=== PATIENT | female | born 1985 | race Caucasian/White ===

== ENCOUNTER 2017-09-22 03:50 | Emergency (ER) | payer OTHER ==
[2017-09-22 04:05] VITALS: TEMP 98.2
--- NOTE | 2017-09-22 04:38 | CT ---
EXAM: CT Head Without Intravenous Contrast CLINICAL HISTORY: Reason: Pain TECHNIQUE: Axial computed tomography images of the head/brain without intravenous contrast. CTDI is 57.4 mGy and DLP is 961.0 mGy-cm. This CT exam was performed using one or more of the following dose reduction techniques: automated exposure control, adjustment of the mA and/or kV according to patient size, and/or use of iterative reconstruction technique. COMPARISON: CT head dated 10/22/2015. FINDINGS: Brain: Small presumed perivascular space in inferior left basal ganglia appears unchanged. Ventricles: Unremarkable. No ventriculomegaly. Bones/joints: No acute fracture. Soft tissues: Mild soft tissue swelling within the frontal scalp. Sinuses: Unremarkable as visualized. Mastoid air cells: Unremarkable as visualized. IMPRESSION: No acute intracranial hemorrhage or skull fracture. EXAM: CT Head Without Intravenous Contrast CT Cervical Spine Without Intravenous Contrast CLINICAL HISTORY: Reason: Pain TECHNIQUE: Axial computed tomography images of the cervical spine without intravenous contrast. CTDI is 14.1 mGy and DLP is 269.9 mGy-cm. This CT exam was performed using one or more of the following dose reduction techniques: automated exposure control, adjustment of the mA and/or kV according to patient size, and/or use of iterative reconstruction technique. COMPARISON: None. FINDINGS: Vertebrae: Unremarkable. No acute fracture. Normal alignment. Discs/spinal canal/neural foramina: No acute findings. No significant bony spinal canal stenosis. Soft tissues: Unremarkable. Lung apices: Paraseptal emphysema. IMPRESSION: No acute findings.
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
[2017-09-22 09:07] VITALS: RESP 16
[2017-09-22 12:21] VITALS: BP 151/70; PULSE 121
== END 2017-09-22 12:22 | disposition home or self-care (01) ==
LOC: EC 03:50
DX: S02.2XXA Fracture of nasal bones, initial encounter for closed fracture (principal); S00.83XA Contusion of other part of head, initial encounter; F10.120 Alcohol abuse with intoxication, uncomplicated; F17.200 Nicotine dependence, unspecified, uncomplicated; Y04.2XXA Assault by strike against or bumped into by another person, initial encounter; Y92.009 Unspecified place in unspecified non-institutional (private) residence as the place of occurrence of the external cause
CPT/HCPCS: 70450; 72125; 82075; 99284

== ENCOUNTER 2022-01-28 13:02 | Emergency (ER) | payer OTHER ==
[2022-01-28 13:18] VITALS: BP 154/92; PULSE 86; RESP 20; TEMP 99.4
[2022-01-28] MEDS ORDERED: HYDROcodone/APAP 5-325MG 1 EACH TAB PO STA (13:33)
--- NOTE | 2022-01-28 13:53 | ED ---
Lower Extremity Injury HPI - General Chief Complaint: Extremity Injury, Upper Stated Complaint: lt ankle injury Time Seen by Provider: 01/28/22 13:12 Source: patient, RN notes reviewed Mode of arrival: ambulatory Limitations: no limitations - History of Present Illness Initial Comments: This is a 36-year-old female who presents to the emergency department for an injury to the left foot and ankle. Patient states that she tripped over a bunch of cords on her bedroom floor yesterday and fell. She is unsure how her foot and ankle were positioned when she fell, however since then she has been unable to bear any weight on the left foot. She has been applying ice but has otherwise not taken any medication for pain relief. Denies any fevers, chills, sore throat, cough, dyspnea, chest pain, palpitations, abdominal pain, nausea, vomiting, diarrhea, back pain, or headaches. MD Complaint: ankle injury, foot injury Onset/Timin -: days(s) Injury: Ankle: Left, Foot: Left Place: home Worsens With: weight bearing, movement, palpation Treatments Prior to Arrival: bandage - Related Data Previous Rx's Medication Instructions Recorded HYDROcodone/APAP 5-325MG [[place] 1 tab PO Q6HR PRN 3 Days #12 tab 01/28/22 5-325] Allergies Allergy/AdvReac Type Severity Reaction Status Date / Time No Known Allergies Allergy Verified 01/28/22 13:17 Review of Systems ROS Statement: Those systems with pertinent positive or pertinent negative responses have been documented in the HPI. ROS Other: All systems not noted in ROS Statement are negative. Past Medical History Past Medical History: No Reported History History of Any Multi-Drug Resistant Organisms: None Reported Additional Past Surgical History / Comment(s): facial surgery Past Psychological History: No Psychological Hx Reported Smoking Status: Current every day smoker Past Alcohol Use History: Rare Past Drug Use History: Marijuana General Exam Limitations: no limitations General appearance: alert, in distress Head exam: Present: atraumatic, normocephalic, normal inspection Respiratory exam: Present: normal lung sounds bilaterally. Absent: respiratory distress, wheezes, rales, rhonchi, stridor Cardiovascular Exam: Present: regular rate, normal rhythm, normal heart sounds. Absent: systolic murmur, diastolic murmur, rubs, gallop, clicks Extremities exam: Present: other (Erythema, swelling, ecchymosis to the left foot and ankle. Significant tenderness to palpation. 2+ dorsalis pedis and tibialis posterior pulses bilaterally. Capillary refill less than 1 second.) Neurological exam: Present: alert, oriented X3, CN II-XII intact Psychiatric exam: Present: normal affect, normal mood Skin exam: Present: warm, dry, intact, normal color. Absent: rash Course Vital Signs 01/28/22 13:14 Temperature 99.4 F Pulse Rate 86 Respiratory 20 Rate Blood Pressure 154/92 O2 Sat by Pulse 99 Oximetry Procedures - Orthopedic Splinting/Casting Injury #1 Side: left Lower Extremity Injury Location: ankle Lower Extremity Immobilizer: stirrup splint Other Orthopedic Equipment: crutches Medical Decision Making - Medical Decision Making This is a 36-year-old female who presents to the emergency department for a left ankle injury. X-ray reveals an acute nondisplaced oblique intra-articular fracture through the medial malleolus. Patient was placed in a stirrup splint and given crutches. Prescription for [place] sent to the pharmacy. She is advised to take this with ibuprofen and Tylenol. Also instructed her to take the [place] at night until she knows how it affects her, as it may be sedating. She is advised to ice the ankle for the first 2 days followed by heat there afterwards. Information for orthopedic follow-up listed on her discharge form. She is advised to contact them for an appointment. Return precautions reviewed in depth, the patient is instructed to return to the emergency department with any new, worsening, or concerning symptoms. Patient verbalized understanding. This case was discussed in detail with the attending ED physician. Presentation, findings, and treatment plan discussed in detail as well. - Radiology Data Radiology results: report reviewed, image reviewed Disposition Clinical Impression: Fracture of medial malleolus, left, closed Disposition: HOME SELF-CARE Instructions (If sedation given, give patient instructions): Ankle Fracture (ED), Crutch Instructions (ED), Splint Care (ED) Additional Instructions: Return to the emergency department with any new, worsening, or concerning symptoms. Take the [place] sparingly when the pain is the most severe. Otherwise alternate with Tylenol and ibuprofen for pain. Contact Dr. Brown, orthopedics, as listed below for follow-up. Elevate the leg and apply ice for the first 2 days followed by heat there afterwards. Prescriptions: HYDROcodone/APAP 5-325MG [[place] 5-325] 1 tab PO Q6HR PRN 3 Days #12 tab PRN Reason: Pain Is patient prescribed a controlled substance at d/c from ED?: No Referrals: Jared Yoon MD [Primary Care Provider] - 1-2 days Vicente Brown DO [Doctor of Osteopathic Medicine] - 1-2 days
--- NOTE | 2022-01-28 14:25 | XR ---
EXAMINATION TYPE: XR foot complete LT DATE OF EXAM: 01/28/2022 COMPARISON: NONE INDICATION: Pain after fall TECHNIQUE: 3 views of the left foot FINDINGS: Minimal cortical irregularity along the medial distal aspect of the second proximal phalanx, please c orrelate clinically. Subtle linear lucency superimposed on the base of the fourth metatarsal bone, please correlate clinic ally. No definite acute fracture line identified otherwise. No other significant bony or articular abnormal ity is seen. IMPRESSION: As above.
--- NOTE | 2022-01-28 14:28 | XR ---
EXAMINATION TYPE: XR tibia fibula LT DATE OF EXAM: 01/28/2022 CLINICAL HISTORY: Pain after fall injury. TECHNIQUE: Two views of the left leg are obtained. COMPARISON: Same day left foot x-ray.. FINDINGS: There is acute nondisplaced oblique intra-articular fracture through the medial malleolus. Lateral malleolus is intact. Ankle mortise symmetry fairly well preserved. No additional fracture in the proximal to mid left leg. A few anterior phleboliths are present. IMPRESSION: There is acute nondisplaced oblique intra-articular fracture through the medial malleolu s.
== END 2022-01-28 15:39 | disposition home or self-care (01) ==
LOC: EC 13:02
DX: S82.52XA Displaced fracture of medial malleolus of left tibia, initial encounter for closed fracture (principal); F17.200 Nicotine dependence, unspecified, uncomplicated; W01.0XXA Fall on same level from slipping, tripping and stumbling without subsequent striking against object, initial encounter

== ENCOUNTER 2024-10-14 16:13 | Emergency (ER) | payer OTHER ==
[2024-10-14] MEDS: dexAMETHasone 2 MG TAB PO STA (17:08)
[2024-10-14] MEDS: IBUPROFEN 600 MG TAB PO STA (17:08)
[2024-10-14 17:57] LABS: Influenza A Not Detected (Not Detectd); Influenza B Not Detected (Not Detectd); RSV Not Detected (Not Detectd)
--- NOTE | 2024-10-14 18:07 | ED ---
ENT HPI - General Chief complaint: ENT Stated complaint: Swollen Throat Time Seen by Provider: 10/14/24 18:06 Source: patient, RN notes reviewed Mode of arrival: ambulatory Limitations: no limitations - History of Present Illness Initial comments: 39-year-old female presented to the ER for evaluation of swollen throat. Patient states around 9 AM this morning she woke up and noticed her throat felt swollen. Patient states it is mildly painful for her to swallow but denies any difficulty breathing or difficulty handling her own secretions. She denies any fevers, chills or tongue swelling. She does report recent household members have been ill with URI symptoms. No other complaints at this time. No new medications. - Related Data Previous Rx's Medication Instructions Recorded HYDROcodone/APAP 5-325MG [[place] 1 tab PO Q6HR PRN 3 Days #12 tab 01/28/22 5-325] Allergies Allergy/AdvReac Type Severity Reaction Status Date / Time No Known Allergies Allergy Verified 10/14/24 16:32 Review of Systems ROS Statement: Those systems with pertinent positive or pertinent negative responses have been documented in the HPI. ROS Other: All systems not noted in ROS Statement are negative. Past Medical History Past Medical History: No Reported History History of Any Multi-Drug Resistant Organisms: None Reported Past Surgical History: Section Additional Past Surgical History / Comment(s): facial surgery Past Psychological History: No Psychological Hx Reported Smoking Status: Current every day smoker Past Alcohol Use History: Rare Past Drug Use History: Marijuana General Exam Limitations: no limitations General appearance: alert, in no apparent distress ENT exam: Present: mucous membranes moist (Edematous uvula. No erythema. Uvula appears to be pale no exudate), TM's normal bilaterally Neck exam: Present: normal inspection. Absent: tenderness, meningismus, lymphadenopathy Respiratory exam: Present: normal lung sounds bilaterally. Absent: respiratory distress, wheezes, rales, rhonchi, stridor Cardiovascular Exam: Present: regular rate, normal rhythm, normal heart sounds. Absent: systolic murmur, diastolic murmur, rubs, gallop, clicks Neurological exam: Present: alert, oriented X3, CN II-XII intact Skin exam: Present: warm, dry, intact, normal color. Absent: rash Course Vital Signs 10/14/24 10/14/24 16:29 18:38 Temperature 97.9 F 98.8 F Pulse Rate 84 73 Respiratory 18 19 Rate Blood Pressure 139/82 145/81 O2 Sat by Pulse 96 98 Oximetry Medical Decision Making - Medical Decision Making Was pt. sent in by a medical professional or institution (TITA Dixon, CLEAN ROOM TECHNICIAN, urgent care, hospital, or [facility]...) When possible be specific @ -No Did you speak to anyone other than the patient for history (EMS, parent, family, police, friend...)? What history was obtained from this source @ -No Did you review nursing and triage notes (agree or disagree)? Why? @ -I reviewed and agree with nursing and triage notes Were old charts reviewed (outside hosp., previous admission, EMS record, old EKG, old radiological studies, urgent care reports/EKG's, [facility] records)? Report findings @ -No old charts were reviewed Differential Diagnosis (chest pain, altered mental status, abdominal pain women, abdominal pain men, vaginal bleeding, weakness, fever, dyspnea, syncope, headache, dizziness, GI bleed, back pain, seizure, CVA, palpatations, mental health, musculoskeletal)? @ -COVID, RSV, influenza, viral sinusitis, pneumonia, strep pharyngitis, this list is not meant to be all-inclusive EKG interpreted by me (3pts min.). @ -None done X-rays interpreted by me (1pt min.). @ -None done CT interpreted by me (1pt min.). @ -None done U/S interpreted by me (1pt. min.). @ -None done What testing was considered but not performed or refused? (CT, X-rays, U/S, labs)? Why? @ -None What meds were considered but not given or refused? Why? @ -None Did you discuss the management of the patient with other professionals (professionals i.e. TITA Dixon, CLEAN ROOM TECHNICIAN, lab, RT, psych nurse, social secretary, farm machine tender, teacher, mail officer, case consultant)? Give summary @ -No Was smoking cessation discussed for >3mins.? @ -No Was critical care preformed (if so, how long)? @ -No Were there social determinants of health that impacted care today? How? (Homelessness, low income, unemployed, alcoholism, drug addiction, transportation, low edu. Level, literacy, decrease access to med. care, half-way, rehab)? @ -No Was there de-escalation of care discussed even if they declined (Discuss DNR or withdrawal of care, Hospice)? DNR status @ -No What co-morbidities impacted this encounter? (DM, HTN, Smoking, COPD, CAD, Cancer, CVA, ARF, Chemo, Hep., AIDS, mental health diagnosis, sleep apnea, morbid obesity)? @ -None Was patient admitted / discharged? Hospital course, mention meds given and route, prescriptions, significant lab abnormalities, going to OR and other pertinent info. @ -[Discharge. 39-year-old female presented to the ER for evaluation of sore throat. Exam showing an edematous uvula with a pale white appearance. There are no exudates oropharynx patent. There is no tongue or throat swelling. Patient in no signs of acute distress nontoxic-appearing. Viral swabs and strep negative. Patient given Decadron and ibuprofen. Patient stable for discharge at this time with close outpatient follow-up to PCP. I advised ice water and ibuprofen for symptom control. Strict return parameters discussed. Patient discharged in stable condition. Patient will expressed understanding agree with care plan. Case discussed with ED attending, . Undiagnosed new problem with uncertain prognosis? @ -No Drug Therapy requiring intensive monitoring for toxicity (Heparin, Nitro, Insulin, Cardizem)? @ -No Were any procedures done? @ -No Diagnosis/symptom? @ -Uvulitis Acute, or Chronic, or Acute on Chronic? @ -Acute Uncomplicated (without systemic symptoms) or Complicated (systemic symptoms)? @ -Uncomplicated Side effects of treatment? @ -No Exacerbation, Progression, or Severe Exacerbation? @ -No Poses a threat to life or bodily function? How? (Chest pain, USA, OR, pneumonia, PE, COPD, DKA, ARF, appy, cholecystitis, CVA, Diverticulitis, Homicidal, Suicidal, threat to staff... and all critical care pts) @ -No - Lab Data Lab Results 10/14/24 10/14/24 Range/Units 17:10 17:10 Influenza Type A (PCR) Not Detected (Not Detectd) Influenza Type B (PCR) Not Detected (Not Detectd) RSV (PCR) Not Detected (Not Detectd) SARS-CoV-2 (PCR) Not Detected (Not Detectd) Group A Strep (PCR) NOT DETECTED (Not Detectd) Disposition Clinical Impression: Uvulitis Disposition: HOME SELF-CARE Condition: Stable Additional Instructions: Continue drinking lots of ice water. I also recommend ibuprofen for inflammation and pain control. Be sure to eat when taking ibuprofen as this may irritate your stomach. Follow-up with PCP. Return to the ER for any new or worsening concerns. Is patient prescribed a controlled substance at d/c from ED?: No Referrals: None,Stated [Primary Care Provider] - 1-2 days Forms: Area PCPs Time of Disposition: 18:07
[2024-10-14 18:39] VITALS: BP 145/81; PULSE 73; RESP 19; TEMP 98.8
== END 2024-10-14 18:39 | disposition home or self-care (01) ==
LOC: EC 16:13
DX: K12.2 Cellulitis and abscess of mouth (principal); F17.200 Nicotine dependence, unspecified, uncomplicated
CPT/HCPCS: 87651; 87636; 99284; J8540